=== PATIENT | female | born 2005 | race Two or more races ===

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

== ENCOUNTER 2025-01-10 13:15 | Inpatient (IN) | payer OTHER ==
[~2025-01-10] VITALS: Ht 157.5 cm; Wt 3.2 kg
[~2025-01-10 13:15] MED LIST: FOLIC ACID0.8 M1 PO; PRENATA CHEWAB1 EACH PO
[2025-01-24] MEDS ORDERED: RINGERS SOLUTION,LACTATED 1,000 ML IV SCH (06:30)
[2025-01-24 06:48] VITALS: BP 134/72
[2025-01-24 08:01] VITALS: BP 134/72
[2025-01-24] MEDS ORDERED: MISOPROSTOL 25 MCG/4 ML GEL.W.APPL VAG ONE ×2 (08:15→13:00)
[2025-01-24 08:37] LABS: BASO % 0.2 % (0.1-1.2); EOS # 0.13 (0.04-0.54); EOS % 1.1 % (0.7-7.0); LYMPH # 1.94 (1.18-3.74); LYMPH % 15.9 % (19.3-53.1); MEAN PLATELET VOLUME 11.00 fl (9.4-12.4); MONO # 0.79 (0.24-0.82); MONO % 6.5 % (4.7-12.5); NEUT # 9.27 (1.56-6.13); NEUT % 75.9 % (34.0-71.1); RED CELL DISTRIBUTION WIDTH 14.2 % (11.6-14.4)
[2025-01-24 08:49] LABS: URINE APPEARANCE Clear; URINE BACTERIA 604.6 uL (0.0-1933); URINE BILIRRUBIN Negative (NEGATIVE); URINE BLOOD Moderate; URINE COLOR Yellow; URINE EPITHELIAL CELLS 5.3 uL (0.0-38.8); URINE GLUCOSE Negative (NEGATIVE); URINE KETONE Negative (NEGATIVE); URINE LEUKOCYTE Negative; URINE NITRATE Negative; URINE PROTEIN Negative (NEGATIVE); URINE RBC 252.8 uL (0.0-20.8); URINE UROBILINOGEN 0.2 E.U./dl; URINE WBC 28.2 uL (0.0-23.2)
[2025-01-24 08:58] LABS: INR < 0.93
[2025-01-24 09:13] LABS: ALT/SGPT 17.0 U/L (12-78); AST/SGOT 10.0 U/L (15-37); BILIRUBIN TOTAL 0.23 mg/dL (0.3-1.2); BUN CREA RATIO 20.0 (7.0-25.0); CREATININE SERUM 0.56 mg/dL (0.55-1.02); GFR 139.46; GLOBULINA 3.9 G/DL (2.4-3.5); GLUCOSE FASTING 80.0 mg/dL (65-100); OSMOLALITY SERUM 276.0 MOSM/KG (275-295)
[2025-01-24 09:16] LABS: URINE CAST 0.14 uL (0.0-1.40)
[2025-01-24 11:17] VITALS: BP 125/78
[2025-01-24] MEDS ORDERED: MISOPROSTOL 25 MCG/4 ML GEL.W.APPL ONE (12:42)
[2025-01-24 15:16] VITALS: BP 116/64; BP 132/69
[2025-01-24] MEDS ORDERED: OXYTOCIN 10 UNITS/ML VIAL ONE (16:19)
[2025-01-24] MEDS ORDERED: ERYTHROMYCIN BASE OPHT 1GM EACH TUBE OP ONE (16:20)
[2025-01-24] MEDS ORDERED: CEFAZOLIN SODIUM 1,000 MG VIAL IV ONE (17:45)
[2025-01-24] MEDS ORDERED: MORPHINE SULFATE 4 MG/ML VIAL IV ONE ×2 (18:30→19:30)
[2025-01-24] MEDS ORDERED: MORPHINE SULFATE 4 MG/ML CARTRIDGE IV SCH (21:00)
[2025-01-24] MEDS ORDERED: KETOROLAC TROMETHAMINE 60 MG VIAL IM ONE ×2 (21:10→22:00)
[2025-01-24 21:45] VITALS: BP 130/72
[2025-01-25] MEDS ORDERED: OxyCODONE HCL 5 MG TABLET (ROXICODONE) PO SCH (05:00)
[2025-01-25 05:30] VITALS: BP 115/71
[2025-01-25 06:53] LABS: BASO % 0.2 % (0.1-1.2); EOS # 0.05 (0.04-0.54); EOS % 0.5 % (0.7-7.0); LYMPH # 1.36 (1.18-3.74); LYMPH % 13.5 % (19.3-53.1); MEAN PLATELET VOLUME 10.60 fl (9.4-12.4); MONO # 0.73 (0.24-0.82); MONO % 7.3 % (4.7-12.5); NEUT # 7.85 (1.56-6.13); NEUT % 78.2 % (34.0-71.1); RED CELL DISTRIBUTION WIDTH 14.1 % (11.6-14.4)
[2025-01-25 07:49] VITALS: BP 106/66
[2025-01-25] MEDS ORDERED: SIMETHICONE 125 MG CAPSULE PO SCH (08:00)
[2025-01-25] MEDS ORDERED: PNV,CALCIUM 72/IRON/FOLIC ACID 1 TAB TABLET PO SCH (08:00)
[2025-01-25] MEDS ORDERED: DOCUSATE SODIUM 100MG CAP PO SCH (08:00)
[2025-01-25 13:06] VITALS: BP 107/73
[2025-01-25 16:00] VITALS: BP 104/68
[2025-01-26 01:41] VITALS: BP 119/73
[2025-01-26 08:20] VITALS: BP 90/70
[2025-01-26 16:27] VITALS: BP 117/71
[2025-01-26 19:00] VITALS: BP 116/76
[2025-01-27 01:26] VITALS: BP 119/72
[2025-01-27 08:26] VITALS: BP 106/70
== END 2025-01-27 13:10 | disposition home or self-care (01) | DRG 788 ==
LOC: LDR 01-21 13:15 → OB/GYN 01-24 06:26 → O/R 01-24 06:26 → LDR 01-24 06:26 → O/R 01-24 17:10 → OB/GYN 01-24 19:27
PROVIDERS: ADMIT Obstetrics & Gynecology; ATTEND Obstetrics & Gynecology
PROC: 3E033VJ Introduction of Other Hormone into Peripheral Vein, Percutaneous Approach (ICD-10-PCS; 2025-01-24)
PROC: 3E0P7VZ Introduction of Hormone into Female Reproductive, Via Natural or Artificial Opening (ICD-10-PCS; 2025-01-24)
PROC: 4A1HXCZ Monitoring of Products of Conception, Cardiac Rate, External Approach (ICD-10-PCS; 2025-01-24)
PROC: 10D00Z1 Extraction of Products of Conception, Low, Open Approach (ICD-10-PCS; principal; 2025-01-24 16:15)
DX: O34.03 Maternal care for unspecified congenital malformation of uterus, third trimester (principal); Z37.0 Single live birth; Z3A.40 40 weeks gestation of pregnancy

== ENCOUNTER 2025-05-22 18:25 | Emergency (ER) | payer OTHER ==
[~2025-05-22] VITALS: Ht 160 cm; Wt 59.0 kg
[2025-05-22 19:45] VITALS: BP 120/82; O2SAT 99
[2025-05-22 23:00] LABS: URINE APPEARANCE Cloudy; URINE BILIRRUBIN Negative (NEGATIVE); URINE BLOOD Large; URINE COLOR Yellow; URINE GLUCOSE Negative (NEGATIVE); URINE KETONE Negative (NEGATIVE); URINE LEUKOCYTE Negative; URINE NITRATE Negative; URINE PROTEIN 30 (NEGATIVE); URINE UROBILINOGEN 1.0 E.U./dl
[2025-05-22 23:03] LABS: URINE EPITHELIAL CELLS 76.9 uL (0.0-38.8); URINE RBC 6.2 uL (0.0-20.8); URINE WBC 63.6 uL (0.0-23.2)
[2025-05-22 23:11] LABS: BASO % 0.2 % (0.1-1.2); EOS # 0.03 (0.04-0.54); EOS % 0.7 % (0.7-7.0); LYMPH # 1.21 (1.18-3.74); LYMPH % 29.6 % (19.3-53.1); MEAN PLATELET VOLUME 9.90 fl (9.4-12.4); MONO # 0.66 (0.24-0.82); NEUT # 2.18 (1.56-6.13); NEUT % 53.4 % (34.0-71.1); RED CELL DISTRIBUTION WIDTH 14.1 % (11.6-14.4)
[2025-05-22 23:22] LABS: MONO % 16.1 % (4.7-12.5)
[2025-05-22 23:24] LABS: BUN CREA RATIO 18.0 (7.0-25.0); CREATININE SERUM 0.67 mg/dL (0.55-1.02); GFR 113.39; GLUCOSE FASTING 98.0 mg/dL (65-100); OSMOLALITY SERUM 279.0 MOSM/KG (275-295)
[2025-05-22 23:36] LABS: URINE CAST 0.56 uL (0.0-1.40)
[2025-05-22 23:37] LABS: TYPE CELLS SQUAMOUS; URINE MUCUS SCANT
[2025-05-22] MEDS ORDERED: FLUCONAZOLE100 MG PO (23:42)
[2025-05-22] MEDS ORDERED: OSEL75CA PO (23:42)
== END 2025-05-22 23:46 | disposition home or self-care (01) ==
LOC: ER 18:26
PROVIDERS: General Practice
DX: J10.1 Influenza due to other identified influenza virus with other respiratory manifestations (principal); B34.8 Other viral infections of unspecified site; R55 Syncope and collapse; B37.89 Other sites of candidiasis